=== PATIENT | female | born 1930 | race Caucasian/White ===

== ENCOUNTER 2017-03-11 05:56 | Emergency (ER) | payer MEDICARE ==
[2016-09-24 10:56] VITALS: BMI 25.0
[~2017-03-11 05:56] MED LIST: ACETAMINOPHEN325 MG PO; ALEVE220 MG PO; BAYER CHEWABLE81 MG PO; BETAPACE 80 MG80 MG PO; COZAAR50 MG PO; K-TAB10 MEQ PO; LEVAQUIN500 MG PO; PLAVIX75 MG PO; PRAVACHOL20 MG PO
[2017-03-11 06:52] LABS: BASOPHILS 0.3 % (0-2); EOSINOPHILS 2.6 % (0-7); HEMATOCRIT 40.1 % (36.0-48.0); HEMOGLOBIN 12.9 g/dL (12-16); IMMATURE GRANULOCYTES 0.3 % (0-5); LYMPHOCYTES 11.8 % (15-50); MCH 31.8 pg (26.0-34.0); MCHC 32.2 g/dL (31.0-37.0); MCV 98.8 fL (80.0-100.0); MEAN PLATELET VOLUME 9.2 fL (7.4-10.4); MONOCYTES 7.3 % (2-11); NEUTROPHILS 77.7 % (40-80); PLATELET COUNT 287 10x3/uL (130-400); RBC 4.06 10x6/uL (4.00-5.40); RDW 14.2 % (11.5-14.5); WBC 11.8 10x3/uL (4.8-10.8)
[2017-03-11 06:56] LABS: ANION GAP 10.9 mmol/L (8-16); CALCIUM 8.9 mg/dL (8.5-10.1); CARBON DIOXIDE 27.7 mmol/L (21.0-32.0); CREATININE - SERUM 0.8 mg/dL (0.6-1.3); POTASSIUM - SERUM 3.6 mmol/L (3.5-5.1)
[2017-03-11 06:58] LABS: APPEARANCE CLEAR (CLEAR); BILIRUBIN NEGATIVE (NEGATIVE); COLOR YELLOW (YELLOW); GLUCOSE NEGATIVE (NEGATIVE); KETONE NEGATIVE (NEGATIVE); LEUKOCYTE ESTERASE TRACE (NEGATIVE); NITRITE NEGATIVE (NEGATIVE); PROTEIN NEGATIVE (NEGATIVE); SPECIFIC GRAVITY 1.005 (1.005-1.020); UROBILINOGEN NORMAL (NORMAL)
[2017-03-11 07:00] LABS: BACTERIA MODERATE /hpf (NONE SEEN); RED CELLS - URINE RARE /hpf (0-5)
== END 2017-03-11 10:28 | disposition home or self-care (01) ==
LOC: D.ER 05:56
PROVIDERS: Emergency Medicine Emergency Medical Services
DX: R51 Headache (principal); R11.2 Nausea with vomiting, unspecified; I10 Essential (primary) hypertension; I48.2 Chronic atrial fibrillation

== ENCOUNTER 2018-04-30 17:08 | Inpatient (IN) | payer MEDICARE ==
[~2018-04-30] VITALS: Ht 167.6 cm; Wt 59.0 kg
--- NOTE | ~2018-04-30 | MORECARE ---
CASE MANAGEMENT DISCHARGE SUMMARY PATIENT: ELIZABET LANZA UNIT: [id number] ADM DATE: 04/30/18 AGE: 87 : [birth year] SEX: F ROOM/BED: D.2211 AUTHOR: CASE, EQUIPMENT MAINT TECH PHYSICIAN: REFERRING PHYSICIAN: JANUARY RIVERO MD DATE OF SERVICE: 04/30/18 Discharge Plan Patient Name: ELIZABET LANZA Facility: [facility]:[place] : 1930 Planned Disposition: Anticipated Discharge Date: 05/02/18 Discharge Date: Expected LOS: 2 Initial Reviewer: [email or web address] Initial Review Date: 05/02/2018 Generated: 05/02/18 3:55 pm Comments DCP- Discharge Planning Updated by [email or web address]: Melody Gamino on 05/02/18 1:[address] Patient Name: ELIZABET LANZA Admission Status: ER Accout number: [id number] Admission Date: 04-30-2018 : 1930 Admission Diagnosis:NONDISP FX OF HEAD OF RIGHT RADIUS, INIT FOR CLOS FX Attending: JANUARY RIVERO Current LOS: 2 Anticipated DC Date: 05-02-2018 Planned Disposition: Primary Insurance: [facility] Discharge Planning Comments: CM met witth daughter about dc planning/needs. Daughter states patient has dementia. States she lives at [facility]. States will need transport back to [facility]. [facility] contacted and waiting for them to return our call about transport. CM will continue to follow and assist as needed with dc planning/needs. Trimming Cutter Machine: Melody Gamino DCPIA - Discharge Planning Initial Assessment Updated by [email or web address]: Melody Gamino on 05/02/18 2:50 pm * Is the patient Alert and Oriented? No * How many steps to enterexit or inside your home? * Preadmission Environment Assisted Living * Facility Name [facility] * ADLs Independent * Additional services required to return to the preadmission environment? No * Can the patient safely return to the preadmission environment? Yes * Has this patient been hospitalized within the prior 30 days at any hospital? No Patient Name: ELIZABET LANZA Page [id number] All edits/amendments must be made on the electronic document DICTATION DATE: 05/02/181454 CRYPTOLOGIC TECHNICIAN TECHNICAL: 05/02/181454 RPT#: [id number] DC DATE: STATUS: ADM IN [facility] [address] [place] [address] END OF REPORT
[2018-04-30] MEDS ORDERED: ADVIL200 MG (17:13)
[2018-04-30] MEDS ORDERED: HYDROCODON-ACET15 ML (17:13)
[2018-04-30] MEDS ORDERED: ZOFRAN4 MG (17:14)
[2018-04-30] MEDS ORDERED: OMEPRAZOLE40 MG (17:15)
[2018-04-30] MEDS ORDERED: NORVASC5 MG (17:15)
[2018-04-30] MEDS ORDERED: MACROBID100 MG PO (17:16)
[2018-04-30] MEDS ORDERED: FUROSEMIDE40 MG PO (17:16)
[2018-04-30 18:09] LABS: APPEARANCE HAZY (CLEAR); BILIRUBIN NEGATIVE (NEGATIVE); COLOR YELLOW (YELLOW); GLUCOSE NEGATIVE (NEGATIVE); KETONE NEGATIVE (NEGATIVE); NITRITE NEGATIVE (NEGATIVE); PH 5.5 (5.0-6.0); PROTEIN 1+ mg/dL (NEGATIVE); UROBILINOGEN NORMAL (NORMAL)
[2018-04-30 18:19] LABS: BACTERIA FEW /hpf (NONE SEEN); EPITHELIAL CELLS RARE /hpf (0-5); RED CELLS - URINE RARE /hpf (0-5)
[2018-04-30 19:10] LABS: HEMATOCRIT 38.4 % (36.0-48.0); HEMOGLOBIN 12.6 g/dL (12-16); MCH 30.6 pg (26.0-34.0); MCHC 32.8 g/dL (31.0-37.0); MCV 93.2 fL (80.0-100.0); MEAN PLATELET VOLUME 9.5 fL (7.4-10.4); PLATELET COUNT 252 10x3/uL (130-400); RBC 4.12 10x6/uL (4.00-5.40); RDW 14.4 % (11.5-14.5); WBC 23.9 10x3/uL (4.8-10.8)
[2018-04-30 19:30] VITALS: BP 116/62
[2018-04-30 19:31] LABS: ALBUMIN 3.5 g/dL (3.4-5.0); ANION GAP 13.3 mmol/L (8-16); BILIRUBIN - TOTAL 1.24 mg/dL (0.2-1.3); CALCIUM 8.9 mg/dL (8.5-10.1); CARBON DIOXIDE 26.7 mmol/L (21.0-32.0); PROTEIN - SERUM 6.7 g/dL (6.4-8.2)
[2018-04-30 19:46] LABS: LYMPHOCYTES 4 % (15-50); MONOCYTES 3 % (2-11); NEUTROPHILS 81 % (40-80); PLATELET ESTIMATE NORMAL
[2018-05-01 01:14] VITALS: BP 102/59; BMI 21.0
[2018-05-01] MEDS ORDERED: DIPHEDRYL25 MG PO (04:09)
[2018-05-01] MEDS ORDERED: NORCO 7.5/325 T1 TA1 PO (04:14)
[2018-05-01] MEDS ORDERED: NORVASC5 MG PO (04:16)
[2018-05-01] MEDS ORDERED: OMEPRAZOLE40 MG PO (04:18)
[2018-05-01] MEDS ORDERED: ZOFRAN4 MG PO (04:20)
[2018-05-01 04:58] LABS: BASOPHILS 0.1 % (0-2); EOSINOPHILS 0.5 % (0-7); HEMOGLOBIN 10.6 g/dL (12-16); IMMATURE GRANULOCYTES 0.4 % (0-5); LYMPHOCYTES 4.4 % (15-50); MCH 29.9 pg (26.0-34.0); MCHC 32.1 g/dL (31.0-37.0); MCV 93.2 fL (80.0-100.0); MEAN PLATELET VOLUME 9.7 fL (7.4-10.4); MONOCYTES 3.9 % (2-11); NEUTROPHILS 90.7 % (40-80); PLATELET COUNT 250 10x3/uL (130-400); RBC 3.54 10x6/uL (4.00-5.40); RDW 14.8 % (11.5-14.5); WBC 19.3 10x3/uL (4.8-10.8)
[2018-05-01 05:01] VITALS: BP 97/57
[2018-05-01 05:10] LABS: ANION GAP 10.1 mmol/L (8-16); CALCIUM 8.1 mg/dL (8.5-10.1); CARBON DIOXIDE 26.7 mmol/L (21.0-32.0); CREATININE - SERUM 0.9 mg/dL (0.6-1.3); POTASSIUM - SERUM 3.8 mmol/L (3.5-5.1)
[2018-05-01 08:34] VITALS: BP 101/69
[2018-05-01 12:40] VITALS: BP 111/71
[2018-05-01 14:51] LABS: INR 1.22 (0.85-1.17); PROTIME 14.9 SECONDS (11.6-15.0)
[2018-05-01 15:20] VITALS: Ht 167.6 cm; Wt 59.0 kg
[2018-05-01 16:51] VITALS: BP 107/74
[2018-05-01 20:52] VITALS: BP 102/60
[2018-05-02 00:30] VITALS: BP 110/65
[2018-05-02 04:47] LABS: BASOPHILS 0.1 % (0-2); EOSINOPHILS 3.3 % (0-7); HEMATOCRIT 34.2 % (36.0-48.0); IMMATURE GRANULOCYTES 0.3 % (0-5); LYMPHOCYTES 10.8 % (15-50); MCH 30.5 pg (26.0-34.0); MCHC 32.2 g/dL (31.0-37.0); MCV 94.7 fL (80.0-100.0); MEAN PLATELET VOLUME 9.4 fL (7.4-10.4); MONOCYTES 8.5 % (2-11); PLATELET COUNT 249 10x3/uL (130-400); RBC 3.61 10x6/uL (4.00-5.40); WBC 10.6 10x3/uL (4.8-10.8)
[2018-05-02 04:55] LABS: ANION GAP 10.7 mmol/L (8-16); CALCIUM 8.4 mg/dL (8.5-10.1); CARBON DIOXIDE 28.2 mmol/L (21.0-32.0); CREATININE - SERUM 0.9 mg/dL (0.6-1.3); POTASSIUM - SERUM 3.9 mmol/L (3.5-5.1)
[2018-05-02 06:17] VITALS: BP 133/64
[2018-05-02 08:42] VITALS: BP 144/72
[2018-05-02] MEDS ORDERED: CEFUROXIME250 MG PO (10:59)
== END 2018-05-02 17:54 | disposition home or self-care (01) | DRG 563 ==
LOC: D.ER 17:08 → D.EDHOLD 20:24 → D.MS 20:24
PROVIDERS: Emergency Medicine; Family Medicine; Internal Medicine Nephrology
DX: S52.124A Nondisplaced fracture of head of right radius, initial encounter for closed fracture (principal); W18.30XA Fall on same level, unspecified, initial encounter; Y92.121 Bathroom in nursing home as the place of occurrence of the external cause; F03.90 Unspecified dementia, unspecified severity, without behavioral disturbance, psychotic disturbance, mood disturbance, and anxiety; I48.91 Unspecified atrial fibrillation; I10 Essential (primary) hypertension; I25.10 Atherosclerotic heart disease of native coronary artery without angina pectoris; R42 Dizziness and giddiness; S40.021A Contusion of right upper arm, initial encounter; R41.0 Disorientation, unspecified